=== PATIENT | female | born 1980 | race Caucasian/White ===

== ENCOUNTER → 2016-08-31 | Outpatient (CLI) | payer OTHER ==
[~2016-08-31] MED LIST: CALC1TAB94 PO; MULT-974 PO; TERI202.4P SQ
== END ==
DX: I73.00 Raynaud's syndrome without gangrene (principal)

== ENCOUNTER 2016-11-10 10:26 | Outpatient (CLI) | payer OTHER ==
[~2016-11-10] VITALS: Ht 175.3 cm; Wt 58.5 kg
[2016-11-10 10:42] VITALS: BP 125/81
[2016-11-10] MEDS ORDERED: CHOL100045 PO (10:42)
[2016-11-10] MEDS ORDERED: DENO60DI SQ (10:42)
[2016-11-10 13:33] LABS: BASOPHILS % (AUTO) 0 % (0-10); EOSINOPHILS # (AUTO) 0.1 10^3/uL (0.0-0.3); EOSINOPHILS % (AUTO) 1 % (0-10); LYMPHOCYTES # (AUTO) 2.1 X 10^3 (1.0-4.0); LYMPHOCYTES % (AUTO) 30 % (12-44); MEAN CORPUSCULAR HEMOGLOBIN 30 PG (25-34); MEAN CORPUSCULAR HGB CONC 33 G/DL (32-36); MEAN CORPUSCULAR VOLUME 89 FL (80-99); MONOCYTES # (AUTO) 0.6 X 10^3 (0.0-1.0); MONOCYTES % (AUTO) 9 % (0-12); NEUTROPHILS # (AUTO) 4.3 X 10^3 (1.8-7.8); NEUTROPHILS % (AUTO) 60 % (42-75); PLATELET COUNT 290 10^3/uL (130-400); RED BLOOD COUNT 4.26 10^6/uL (4.35-5.85); RED CELL DISTRIBUTION WIDTH 13.8 % (10.0-14.5); WHITE BLOOD COUNT 7.1 10^3/uL (4.3-11.0)
[2016-11-15] MEDS ORDERED: OXYC-202 PO (12:09)
== END 2016-11-10 10:50 | disposition home or self-care (01) ==
LOC: PREOP 10:26
PROVIDERS: ATTEND Obstetrics & Gynecology
DX: Z01.818 Encounter for other preprocedural examination (principal); R10.2 Pelvic and perineal pain; N93.8 Other specified abnormal uterine and vaginal bleeding; N85.8 Other specified noninflammatory disorders of uterus
CPT/HCPCS: 36415; 85025; 87081

== ENCOUNTER 2016-11-15 11:00 | Day surgery (SDC) | payer OTHER ==
[~2016-11-15] VITALS: Ht 175.3 cm; Wt 58.5 kg
[2016-11-15 11:00] VITALS: BP 125/85
[~2016-11-15 11:00] MED LIST changes: +CHOL100045 PO; +DENO60DI SQ
[2016-11-15] MEDS ORDERED: CATHETER FLUSH 10 ML SYR IV PRN (11:15)
[2016-11-15] MEDS ORDERED: ceFAZolin 1 GM/NS 50 ML IVPB IV ONE ×2 (11:15)
[2016-11-15] MEDS: LACTATED RINGERS 1,000 ML IV PRN ×2 (11:40→13:08)
[2016-11-15] MEDS ORDERED: BUPIVACAINE 0.25% 30 ML (SENSORCAINE) VIAL ONE (11:44)
--- NOTE | 2016-11-15 12:06 | Progress Note-Pre Operative ---
Pre-Operative Progress Note H&P Reviewed The H&P was reviewed, patient examined and no changes noted. Date Seen by Provider: Nov 15, 2016 Time Seen by Provider: 12:06 Date H&P Reviewed: Nov 15, 2016 Time H&P Reviewed: 12:06 Pre-Operative Diagnosis: chronic pelvic pain/dysfunctional uterine bleeding/ intrauterine mass MARLENE MELTON MD Nov 15, 2016 12:06 pm
[2016-11-15] MEDS ORDERED: D5 LR IV SOLUTION 1,000 ML IV SCH (12:07)
--- NOTE | 2016-11-15 12:07 | Progress Note-Post Operative ---
Post-Operative Progess Note Surgeon (s)/[employer] (s) Surgeon MARLENE MELTON MD [employer]: Clementine Silverman RN Pre-Operative Diagnosis chronic pelvic pain/dysfunctional uterine bleeding/intrauterine mass Post-Operative Diagnosis same as preop and including extensive left ovarian endometrioma/endometriosis pelvic adhesions and abnormal-appearing appendix with pathology pending Procedure & Operative Findings Date of Procedure 11/15/16 Procedure Performed/Findings hysteroscopy with directed biopsy and D&C. laparoscopy with LSO, adhesio lysis , destruction of endometriosis, laparoscopic appendectomy Anesthesia Type GETA Estimated Blood Loss Estimated blood loss (mL): between 50 and 100 mL Specimens/Packing Specimens Removed right salpingo-oophorectomy, and appendix Packing: none MARLENE MELTON MD Nov 15, 2016 12:07
[2016-11-15] MEDS ORDERED: OXYC-202 PO (12:09)
--- NOTE | 2016-11-15 12:12 | Discharge Instructions ---
Discharge Instructions Discharge Medications New, Converted or Re-Newed RX: RX on Chart Patient Instructions Patient Instructions: as directed Return to The Hospital For: aas directed Activity & Diet Discharge Diet: No Restrictions Activity as Tolerated: No Orders-Post D/C & Referrals Follow Up Appt: Call to make follow up appt. for patient in 1 week for suture removal. Activity: Rest for 24 hours, than as tolerated. Wound Care: May remove Band-Aid tomorrow. Replace as desired. Keep incisions clean and dry. Wash daily with soap and water. medications: Resume Nuva-Ring today Diet: As tolerated-Clear Liquids only if nauseated. May shower or tub bathe as desired. No driving for 24 hours, no alcoholic beverages for 24 hours, and nothing per vagina (no tampons, douching, or intercourse) for 2 weeks. Patient to return to the clinic as soon as possible for: Temperature greater than 101F, Severe Pain, Foul discharge from incision or vagina, Excessive Bleeding (more than a period). MARLENE MELTON MD Nov 15, 2016 12:12 pm
[2016-11-15] MEDS ORDERED: MIDAZOLAM 2 MG/2 ML (VERSED) VIAL ONE (12:14)
[2016-11-15] MEDS ORDERED: fentaNYL INJECTION 100 MCG/2 ML AMP IVP PRN ×2 (12:15→14:15)
[2016-11-15] MEDS ORDERED: ONDANSETRON 4 MG/2 ML (SDV) Z0FRAN IVP PRN ×2 (12:15→14:15)
[2016-11-15] MEDS ORDERED: KETOROLAC 30 MG/ML VIAL IVP ONE (12:15)
[2016-11-15] MEDS ORDERED: oxyCODONE/APAP 10/325MG (PERCOCET 10) TABLET PO PRN (12:15)
[2016-11-15] MEDS ORDERED: ESTROGENS CONJ IV 25 MG/5 ML (PREMARIN) VIAL IVP ONE (12:15)
[2016-11-15] MEDS ORDERED: ONDANSETRON 4 MG/2 ML (SDV) Z0FRAN ONE (12:25)
[2016-11-15] MEDS ORDERED: SEVOFLURANE (ULTANE) 15 ML INHAL SOLN ONE ×6 (12:25→13:24)
[2016-11-15] MEDS ORDERED: LACTATED RINGERS 1,000 ML IV ONE ×2 (12:25→13:24)
[2016-11-15] MEDS ORDERED: proPOfol 200 MG/20 ML (DIPRIVAN) VIAL IV ONE (12:25)
[2016-11-15] MEDS ORDERED: LIDOCAINE PF 2% 5 ML (XYLOCAINE) VIAL ONE (12:25)
[2016-11-15] MEDS ORDERED: ESTROGENS CONJ IV 25 MG/5 ML (PREMARIN) VIAL ONE (12:40)
[2016-11-15] MEDS ORDERED: WATER (STERILE) FOR INJECTION 10 ML ONE (12:40)
[2016-11-15] MEDS ORDERED: KETOROLAC 30 MG/ML VIAL ONE (12:40)
[2016-11-15] MEDS ORDERED: morphine INJ 10 MG/ML 1ML (SYR OR VIAL) ONE (12:40)
[2016-11-15] MEDS ORDERED: hydrALAZINE (APESOLINE) 20 MG/ML VIAL ONE (13:49)
[2016-11-15] MEDS ORDERED: MEPERIDINE (DEMEROL) INJ 50 MG/ML ONE (13:59)
[2016-11-15] MEDS: MEPERIDINE (DEMEROL) INJ 50 MG/ML IVP PRN ×2 (14:07→14:17)
[2016-11-15] MEDS: morphine INJ 10 MG/ML 1ML (SYR OR VIAL) IVP PRN ×2 (14:15→14:20)
[2016-11-15] MEDS ORDERED: fentaNYL INJECTION 100 MCG/2 ML AMP ONE (14:48)
[2016-11-15 15:20] VITALS: BP 114/71
[2016-11-15 15:55] VITALS: BP 109/68
[2016-11-15 17:20] VITALS: BP 118/65
[2016-11-15 17:55] VITALS: BP 118/65
--- NOTE | 2016-11-16 00:21 | OPERATIVE REPORT ---
DATE OF SERVICE: 11/15/2016 PREOPERATIVE DIAGNOSIS: Chronic pelvic pain, left ovarian complex cystic mass, dysfunctional uterine bleeding and intrauterine mass. POSTOPERATIVE DIAGNOSIS: Chronic pelvic pain, left ovarian complex cystic mass, dysfunctional uterine bleeding and intrauterine mass with pathology pending. OPERATIVE PROCEDURE: Hysteroscopy with directed biopsy and D and C, as well as laparoscopic left salpingo-oophorectomy, laparoscopic adhesiolysis, laparoscopic destruction of endometriosis, and laparoscopic appendectomy. OPERATIVE DESCRIPTION: With the patient in the supine position, under satisfactory general anesthesia, she was repositioned dorsal lithotomy position in [facility] and prepped and draped in the usual fashion for abdominal and vaginal surgery. The urinary bladder was drained with a straight catheter. Weighted speculum placed in the posterior fornix of the vagina and the cervix exposed and grasped anteriorly with a single toothed tenaculum. Uterus sounded to 9 cm. With the uterine sound in the cervix, then serially dilated with Chu dilators to accommodate a hysteroscope, was introduced using saline as a distending medium and the endometrial cavity was examined. There were 2 polypoid masses emanating from the left posterolateral surface of the uterine cavity. These were directly biopsied off and sent to pathology as 1 specimen. The endometrial cavity was then sharply curettaged in all 4 quadrants to good uterine cry and that tissue was sent as endometrial curettings. Both tubal ostia were seen. There was no other abnormal pathology in the uterus. With hemostasis assured at this point, a uterine manipulator was placed and the bulb filled with 4 mL of air and then the tenaculum and speculum were removed. The patient was brought into low dorsal lithotomy position for laparoscopy. A 5 mm incision was made in the patient's left upper quadrant, a 12 mm incision in the inferior margin of the umbilicus, and a 5 mm incision just superior to the symphysis pubis. All incision sites were infiltrated with 0.25% Marcaine prior to incision. A Veress needle was placed in the left upper quadrant incision, correct placement was confirmed with a water drop test. The abdomen was insufflated with 2.4 liters of carbon dioxide, the Veress needle was removed and a 5 mm Optiview laparoscopic port placed under direct vision. The patient was placed in Trendelenburg, allowing the bowel to spill partially up out of the pelvis. The abdominal wall was transilluminated and ports of 5 mm and 12 mm were placed suprapubically and infraumbilically through those incisions. The uterus was elevated. The left ovary was densely adherent to the ovarian fossa. There was obvious endometriosis implants and there was an obvious endometrioma involving the bulk of the ovary. There were adhesions of the sigmoid to the left pelvic brim obstructing access to the left tube and ovary. These adhesions were taken down with sharp and blunt dissection as well as using electrocautery with care to avoid thermal or traumatic injury to the bowel and to the adjacent structures. With that ovary freed, it could be seen that it was completely involved with the endometriosis. Decision was made to proceed with a left salpingo-oophorectomy. The pelvic peritoneum was retracted medially from the left side of the pelvis until the ureter could be identified well down away from the area of dissection, and then an endo-DEBORAH was placed across the uteroovarian pedicle and fired, a 2nd was fired across the IP ligament severing that organ from its attachment. The ovary was placed in an endobag and brought out through the umbilical incision. The pelvis was irrigated. There was some bleeding from the proximal staple line. This was touched with electrocautery to affect hemostasis. The pelvis was now examined and additional endometriosis implants in the cul-de-sac and on both uterosacral ligaments and both ovarian fossa were touched with electrocautery to destroy them, taking care to avoid thermal or traumatic injury to bowel or to those adjacent structures. Both ureters seen to peristalse and were well away from the areas of treatment. The right ovary was adherent to the ovarian fossae near its attachment to the mesovarium. This adhesion was taken free. There was some endometriosis there that was destroyed. There was some endometriosis implants on the right ovary that were destroyed with electrocautery as well. The pelvis was now irrigated, then examined for hemostasis which was complete with no further pathology in the pelvis. Attention was turned to the appendix. The appendix was located and elevated. It was injected and irregular in appearance consistent with disease, either infection or endometriosis and/or scar tissue. Decision was made to remove it. The mesoappendix was perforated close to the base of the appendix and an endo-DEBORAH was placed across the base of the appendix and fired. The mesoappendix was then clamped with the 2nd load of the endo-DEBORAH and fired, severing the appendix from its attachments. The appendix was placed into the endo bag and brought out through the umbilical port as well. That was sent to pathology for permanent section. The stump of the appendix was copiously irrigated and then treated with several drops of Betadine solution. The pelvis was examined the final time now for any abnormal pathology and for hemostasis. With no abnormal pathology remaining and hemostasis complete, the procedure was terminated. The operative instruments were removed under direction vision as were the ports. The abdomen was evacuated with insufflating gas in the process of removing the ports. The patient was brought out of Trendelenburg. The uterine manipulator was emptied and the instrument was removed from the uterus and from the vagina. Speculum was replaced in the vagina, cervix was examined for hemostasis, which was complete. Sponge and needle counts were correct on completion of the procedure. Estimated blood loss for the procedure was between 50 and 100 mL. The patient tolerated the procedure well and was uneventfully awakened from general anesthesia and transferred to the recovery room in stable condition with plans for discharge home, PAR. Job ID: [id number] DocumentID: [id number] Dictated Date: 11/15/2016 13:47:06 Informatics Developer Date: 11/15/2016 14:27:10 Dictated By: MARLENE MELTON MD
== END 2016-11-15 17:55 | disposition home or self-care (01) ==
LOC: SDC 11:00
PROVIDERS: ATTEND Obstetrics & Gynecology
DX: N83.202 Unspecified ovarian cyst, left side (principal); R10.2 Pelvic and perineal pain; N93.8 Other specified abnormal uterine and vaginal bleeding
CPT/HCPCS: 84703

== ENCOUNTER → 2018-01-14 | Outpatient (CLI) | payer OTHER ==
[~2018-01-14] MED LIST changes: +OXYC1TAB12 PO
== END ==
LOC: CARD 08:49
PROVIDERS: ATTEND Internal Medicine Cardiovascular Disease
DX: Q21.1 Atrial septal defect (principal); I49.8 Other specified cardiac arrhythmias; R07.89 Other chest pain; I08.1 Rheumatic disorders of both mitral and tricuspid valves
CPT/HCPCS: 93225; 93226; 93306; 93351

== ENCOUNTER → 2018-02-12 | Outpatient (CLI) | payer OTHER | END | disposition home or self-care (01) | LOC: PREOP 05:39 | PROVIDERS: ATTEND Podiatrist | DX: Z01.818 Encounter for other preprocedural examination (principal) ==

== ENCOUNTER 2018-02-15 08:11 | Day surgery (SDC) | payer OTHER ==
[~2018-02-15] VITALS: Ht 175.3 cm; Wt 61.0 kg
[~2018-02-15 08:11] MED LIST changes: +ALEN70TA47 PO; +CALC-903 PO; +CETI10TA20 PO; +ETON1VAG VG; +MAGN100T5 PO; +MULT1TAB69 PO
[2018-02-15] MEDS ORDERED: LACTATED RINGERS 1,000 ML IV PRN (08:16)
--- OUTSIDE RECORDS SUMMARY | 2018-02-15 08:16 | XMS REPORT | Continuity of Care Document ---
Author Author [facility] Organization [facility] Address Unknown Phone Unavailable Allergies Active Description Code Type Severity Reaction Onset Reported/Identified Relationship to Patient Clinical Status Yes vancomycin [id number] Drug Allergy Unknown N/A 10/16/2013 Yes acetaminophen [id number] Drug Allergy Mild N/A 11/20/2016 Yes oxycodone [id number] Drug Allergy Mild N/A 11/20/2016 Medications There is no data. Problems Date Dx Coded Attending Type Code Diagnosis Diagnosed By 07/02/2010 Ot 789.01 ABDOMINAL PAIN, RIGHT UPPER QUADRANT 10/16/2013 AGUSTO JANE MD Ot 540.0 AC APPEND W PERITONITIS 10/16/2013 AGUSTO AJNE MD Ot 560.9 INTESTINAL OBSTRUCT NOS 10/16/2013 AGUSTO JANE MD Ot 564.00 UNSPEC CONSTIPATION 10/16/2013 AGUSTO JANE MD Ot 789.09 ABDOMINAL PAIN, OTHER SPECIFIED SITE 06/04/2014 Ot V76.12 06/23/2014 NANCY JOHNS DO Ot 719.40 06/23/2014 NANCY JOHNS DO Ot 780.79 06/23/2014 NANCY JOHNS DO Ot 781.0 06/23/2014 NANCY JOHNS DO Ot V70.0 06/25/2014 Ot 719.45 06/25/2014 Ot 733.00 06/25/2014 Ot V82.81 06/25/2014 Ot 251.2 06/25/2014 Ot 733.00 06/25/2014 Ot 780.79 06/25/2014 Ot 787.91 06/25/2014 Ot 789.00 06/25/2014 Ot 733.00 06/25/2014 Ot 789.00 06/25/2014 Ot 789.00 06/25/2014 Ot 789.00 06/25/2014 Ot 733.01 06/25/2014 Ot 719.45 06/25/2014 ORENDER DO, NANCY S Ot 733.13 06/25/2014 Ot V76.12 06/25/2014 ORENDER DO, NANCY S Ot 719.40 06/25/2014 ORENDER DO, NANCY S Ot 780.79 06/25/2014 ORENDER DO, NANCY S Ot 781.0 06/25/2014 ORENDER DO, NANCY S Ot V70.0 06/25/2014 Ot 719.45 06/25/2014 Ot 733.00 06/25/2014 Ot V82.81 06/25/2014 Ot 251.2 06/25/2014 Ot 733.00 06/25/2014 Ot 780.79 06/25/2014 Ot 787.91 06/25/2014 Ot 789.00 06/25/2014 Ot 733.00 06/25/2014 Ot 789.00 06/25/2014 Ot 789.00 06/25/2014 Ot 789.00 06/25/2014 Ot 733.01 06/25/2014 Ot 719.45 06/25/2014 ORENDER DO, NANCY S Ot 733.13 06/25/2014 Ot V76.12 06/25/2014 ORENDER DO, NANCY S Ot 719.40 06/25/2014 ORENDER DO, NANCY S Ot 780.79 06/25/2014 ORENDER DO, NANCY S Ot 781.0 06/25/2014 ORENDER DO, NANCY S Ot V70.0 07/16/2014 [facility] Ot 719.45 07/16/2014 [facility] Ot 733.00 09/21/2014 ORENDER DO, NANCY S Ot 723.1 09/21/2014 ORENDER DO, NANCY S Ot 733.00 11/24/2014 AMIE AVINA AFTER SCHO[employer] COUNSELOR Ot 724.2 11/24/2014 AMIE AVINA AFTER SCHO[employer] COUNSELOR Ot V15.51 02/26/2015 Ot M81.0 04/02/2015 ELVIRA ARIAS MD Ot M54.12 04/02/2015 JUANA VIZCAINO, ELVIRA Cordero Ot M54.14 12/20/2015 Ot 733.00 OSTEOPOROSIS NOS 12/20/2015 Ot V82.81 SCREENING FOR OSTEOPOROSIS 12/20/2015 Ot 251.2 HYPOGLYCEMIA NOS 12/20/2015 Ot 733.00 OSTEOPOROSIS NOS 12/20/2015 Ot 780.79 OTH MALAISE FATIGUE 12/20/2015 Ot 787.91 DIARRHEA 12/20/2015 Ot 789.00 ABDOMINAL PAIN, UNSPECIFIED SITE 12/20/2015 Ot 733.00 OSTEOPOROSIS NOS 12/20/2015 Ot 789.00 ABDOMINAL PAIN, UNSPECIFIED SITE 12/20/2015 Ot 789.00 ABDOMINAL PAIN, UNSPECIFIED SITE 12/20/2015 Ot 789.00 ABDOMINAL PAIN, UNSPECIFIED SITE 12/20/2015 Ot 733.01 SENILE OSTEOPOROSIS 12/20/2015 Ot 719.45 JOINT PAIN- PELVIS 12/20/2015 ELIZABETHNDER DO, NANCY S Ot 733.13 PATHOLOGIC FRACTURE, VERTEBRAE 12/20/2015 Ot V76.12 OTH SCREEN MAMMO-MALIGN NEOPLASM OF [place]EN[place] 12/20/2015 ORENDER DO, NANCY S Ot 719.40 JOINT PAIN-UNSPEC 12/20/2015 ORENDER DO, NANCY S Ot 780.79 OTH MALAISE FATIGUE 12/20/2015 ORENDER DO, NANCY S Ot 781.0 ABN INVOLUN MOVEMENT NEC 12/20/2015 ORENDER DO, NANCY S Ot V70.0 ROUTINE MEDICAL EXAM 12/20/2015 ORENDER DO, NANCY S Ot 719.45 JOINT PAIN-PELVIS 12/20/2015 ORENDER DO, NANCY S Ot 733.00 OSTEOPOROSIS NOS 12/20/2015 ORENDER DO, NANCY S Ot 723.1 CERVICALGIA 12/20/2015 ORENDER DO, NANCY S Ot 733.00 OSTEOPOROSIS NOS 12/20/2015 AMIE AVINA AFTER SCHOOL COUNSELOR Ot 724.2 LUMBAGO 12/20/2015 AMIE AVINA AFTER SCHOOL COUNSELOR Ot V15.51 PERSONAL HISTORY OF TRAUMATIC FRACTURE 12/20/2015 Ot M81.0 AGE-RELATED OSTEOPOROSIS W/O CURRENT PAT 12/20/2015 ELVIRA ARIAS MD Ot M54.12 RADICULOPATHY, CERVICAL REGION 12/20/2015 JUANA VIZCAINO, ELVIRA Crodero Ot M54.14 RADICULOPATHY, THORACIC REGION 12/22/2015 ANDREAS MCCLELLAN NANCY S Ot M81.0 AGE-RELATED OSTEOPOROSIS W/O CURRENT PAT 12/22/2015 VICTORINA JOHNS DOLINE S Ot Z00.00 ENCNTR FOR GENERAL ADULT MEDICAL EXAM W12/26/2015 VICTORINA JOHNS DOLINE S Ot M81.0 AGE-RELATED OSTEOPOROSIS W/O CURRENT PAT 12/26/2015 ANDREAS MCCLELLAN, NANCY S Ot Z00.00 ENCNTR FOR GENERAL ADULT MEDICAL EXAM W09/01/2016 ANDREAS MCCLELLAN NANCY S Ot 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 10/03/2016 Ot 719.45 JOINT PAIN- PELVIS 10/03/2016 ANDREAS MCCLELLAN NANCY S Ot 733.13 PATHOLOGIC FRACTURE, VERTEBRAE 10/03/2016 Ot V76.12 OTH SCREEN MAMMO-MALIGN NEOPLASM OF [place] 10/03/2016 ANDREAS NANCY S Ot 719.40 JOINT PAIN-UNSPEC 10/03/2016 BALDOMEROLISSA MCCLELLAN NANCY S Ot 780.79 OTH MALAISE FATIGUE 10/03/2016 ANDREAS MCCLELLAN NANCY S Ot 781.0 ABN INVOLUN MOVEMENT NEC 10/03/2016 BALDOMEROLISSA MCCLELLAN NANCY S Ot V70.0 ROUTINE MEDICAL EXAM 10/03/2016 ANDREAS MCCLELLAN NANCY S Ot 719.45 JOINT PAIN-PELVIS 10/03/2016 ANDREAS MCCLELLAN NANCY S Ot 733.00 OSTEOPOROSIS NOS 10/03/2016 VICTORINA JOHNS DOLINE S Ot 723.1 CERVICALGIA 10/03/2016 ANDREAS MCCLELLAN NANCY S Ot 733.00 OSTEOPOROSIS NOS 10/03/2016 AMIE AVINA Ot 724.2 LUMBAGO 10/03/2016 AMIE AVINA Ot V15.51 PERSONAL HISTORY OF TRAUMATIC FRACTURE 10/03/2016 Ot M81.0 AGE-RELATED OSTEOPOROSIS W/O CURRENT PAT 10/03/2016 JUANA VIZCAINO, ELVIRA Cordero Ot M54.12 RADICULOPATHY, CERVICAL REGION 10/03/2016 JUANA VIZCAINO, ELVIRA Cordero Ot M54.14 RADICULOPATHY, THORACIC REGION 10/03/2016 NANCY JOHNS DO Ot M81.0 AGE-RELATED OSTEOPOROSIS W/O CURRENT PAT 10/03/2016 NANCY JOHNS DO Ot Z00.00 ENCNTR FOR GENERAL ADULT MEDICAL EXAM W/ 10/03/2016 NANCY JOHNS DO Ot 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 11/10/2016 MARLENE MELTON MD Ot N85.8 OTHER SPECIFIED NONINFLAMMATORY DISORDER 11/10/2016 MARLENE MELTON MD Ot N93.8 OTHER SPECIFIED ABNORMAL UTERINE AND VAG 11/10/2016 MARLENE MELTON MD Ot R10.2 PELVIC AND PERINEAL PAIN 11/10/2016 MARLENE MELTON MD Ot Z01.818 ENCOUNTER FOR OTHER PREPROCEDURAL EXAMIN 11/14/2016 MARLENE MELTON MD Ot N85.8 OTHER SPECIFIED NONINFLAMMATORY DISORDER 11/14/2016 MARLENE MELTON MD Ot N93.8 OTHER SPECIFIED ABNORMAL UTERINE AND VAG 11/14/2016 MARLENE MELTON MD Ot R10.2 PELVIC AND PERINEAL PAIN 11/14/2016 MARLENE MELTON MD Ot Z01.818 ENCOUNTER FOR OTHER PREPROCEDURAL EXAMIN 11/15/2016 MARLENE MELTON MD Ot N83.202 UNSPECIFIED OVARIAN CYST, LEFT SIDE 11/15/2016 MARLENE MELTON MD Ot N93.8 OTHER SPECIFIED ABNORMAL UTERINE AND VAG 11/15/2016 MARLENE MELTON MD, Ot R10.2 PELVIC AND PERINEAL PAIN 11/24/2016 MARLENE MELTON MD, Ot N83.202 UNSPECIFIED OVARIAN CYST, LEFT SIDE 11/24/2016 MARLENE MELTON MD Ot N93.8 OTHER SPECIFIED ABNORMAL UTERINE AND VAG 11/24/2016 MARLENE MELTON MD Ot R10.2 PELVIC AND PERINEAL PAIN 08/05/2017 ORENDER DO, NANCY S Ot 733.13 PATHOLOGIC FRACTURE, VERTEBRAE 08/05/2017 Ot V76.12 OTH SCREEN MAMMO-MALIGN NEOPLASM OF [place]EN[place] 08/05/2017 VICTORINA JOHNS DOLINE S Ot 719.40 JOINT PAIN-UNSPEC 08/05/2017 ANDREAS MCCLELLAN NANCY S Ot 780.79 OTH MALAISE FATIGUE 08/05/2017 ANDREAS MCCLELLAN NANCY S Ot 781.0 ABN INVOLUN MOVEMENT NEC 08/05/2017 ANDREAS MCCLELLAN NANCY S Ot V70.0 ROUTINE MEDICAL EXAM 08/05/2017 NANCY JOHNS DO S Ot 719.45 JOINT PAIN-PELVIS 08/05/2017 ANDREAS MCCLELLAN NANCY S Ot 733.00 OSTEOPOROSIS NOS 08/05/2017 BALDOMERO NANCY S Ot 723.1 CERVICALGIA 08/05/2017 ANDREAS MCCLELLAN NANCY S Ot 733.00 OSTEOPOROSIS NOS 08/05/2017 AMIE AVINA AFTER SCHOOL COUNSELOR Ot 724.2 LUMBAGO 08/05/2017 AMIE AVINA AFTER SCHOOL COUNSELOR Ot V15.51 PERSONAL HISTORY OF TRAUMATIC FRACTURE 08/05/2017 Ot M81.0 AGE-RELATED OSTEOPOROSIS W/O CURRENT PAT 08/05/2017 JUANA VIZCAINO, ELVIRA Cordero Ot M54.12 RADICULOPATHY, CERVICAL REGION 08/05/2017 JUANA VIZCAINO, ELVIRA Cordero Ot M54.14 RADICULOPATHY, THORACIC REGION 08/05/2017 ANDREAS MCCLELLAN NANCY Lazaro Ot M81.0 AGE-RELATED OSTEOPOROSIS W/O CURRENT PAT 08/05/2017 ANDREAS MCCLELLAN NANCY S Ot Z00.00 ENCNTR FOR GENERAL ADULT MEDICAL EXAM W/ 08/05/2017 ANDREAS MCCLELLAN NANCY S Ot 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 01/10/2018 ANDREAS MCCLELLAN NANCY S Ot 733.13 PATHOLOGIC FRACTURE, VERTEBRAE 01/10/2018 Ot V76.12 OTH SCREEN MAMMO-MALIGN NEOPLASM OF [place] 01/10/2018 ANDREAS MCCLELLAN NANCY S Ot 719.40 JOINT PAIN-UNSPEC 01/10/2018 ANDREAS MCCLELLAN NANCY S Ot 780.79 OTH MALAISE FATIGUE 01/10/2018 NANCY JOHNS DO Ot 781.0 ABN INVOLUN MOVEMENT NEC 01/10/2018 NANCY JOHNS DO Ot V70.0 ROUTINE MEDICAL EXAM 01/10/2018 NANCY JOHNS DO Ot 719.45 JOINT PAIN-PELVIS 01/10/2018 NANCY JOHNS DO Ot 733.00 OSTEOPOROSIS NOS 01/10/2018 NANCY JOHNS DO S Ot 723.1 CERVICALGIA 01/10/2018 NANCY JOHNS DO Ot 733.00 OSTEOPOROSIS NOS 01/10/2018 AMIE AVINA AFTER SCHOOL COUNSELOR Ot 724.2 LUMBAGO 01/10/2018 AMIE AVINA AFTER SCHOOL COUNSELOR Ot V15.51 PERSONAL HISTORY OF TRAUMATIC FRACTURE 01/10/2018 Ot M81.0 AGE-RELATED OSTEOPOROSIS W/O CURRENT PAT 01/10/2018 JUANA VIZCAINO, ELVIRA Cordero Ot M54.12 RADICULOPATHY, CERVICAL REGION 01/10/2018 JUANA VIZCAINO, ELVIRA Cordero Ot M54.14 RADICULOPATHY, THORACIC REGION 01/10/2018 NANCY JOHNS DO Ot M81.0 AGE-RELATED OSTEOPOROSIS W/O CURRENT PAT 01/10/2018 NANCY JOHNS DO Ot Z00.00 ENCNTR FOR GENERAL ADULT MEDICAL EXAM W/ 01/10/2018 NANCY JOHNS DO Ot 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 01/14/2018 ANRDEAS MCCLELLAN NANCY Willis Ot 733.13 PATHOLOGIC FRACTURE, VERTEBRAE 01/14/2018 Ot V76.12 OT SCREEN MAMMO-MALIGN NEOPLASM OF [place] 01/14/2018 NANCY JOHNS DO Ot 719.40 JOINT PAIN-UNSPEC 01/14/2018 NANCY JOHNS DO Ot 780.79 OTH MALAISE FATIGUE 01/14/2018 NANCY JOHNS DO Ot 781.0 ABN INVOLUN MOVEMENT NEC 01/14/2018 NANCY JOHNS DO Ot V70.0 ROUTINE MEDICAL EXAM 01/14/2018 NANCY JOHNS DO Ot 719.45 JOINT PAIN-PELVIS 01/14/2018 ANDREAS MCCLELLAN NANCY S Ot 733.00 OSTEOPOROSIS NOS 01/14/2018 ELIZABETHMANDY DO NANCY S Ot 723.1 CERVICALGIA 01/14/2018 ANDREAS MCCLELLAN NANCY S Ot 733.00 OSTEOPOROSIS NOS 01/14/2018 AMIE AVINA AFTER SCHOOL COUNSELOR Ot 724.2 LUMBAGO 01/14/2018 AMIE AVINA AFTER SCHOOL COUNSELOR Ot V15.51 PERSONAL HISTORY OF TRAUMATIC FRACTURE 01/14/2018 Ot M81.0 AGE-RELATED OSTEOPOROSIS W/O CURRENT PAT 01/14/2018 JUANA VIZCAINO, ELVIRA Cordero Ot M54.12 RADICULOPATHY, CERVICAL REGION 01/14/2018 JUANA VIZCAINO, ELVIRA Cordero Ot M54.14 RADICULOPATHY, THORACIC REGION 01/14/2018 NANCY JOHNS DO S Ot M81.0 AGE-RELATED OSTEOPOROSIS W/O CURRENT PAT 01/14/2018 NANCY JOHNS DO S Ot Z00.00 ENCNTR FOR GENERAL ADULT MEDICAL EXAM W/ 01/14/2018 NANCY JOHNS DO S Ot 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 01/15/2018 CHANO VIZCAINO, JES Cordero Ot I08.1 RHEUMATIC DISORDERS OF BOTH MITRAL AND T 01/15/2018 CHANO VIZCAINO, JES Cordero Ot I49.8 OTHER SPECIFIED CARDIAC ARRHYTHMIAS 01/15/2018 CHANO VIZCAINO, JES Cordero Ot Q21.1 ATRIAL SEPTAL DEFECT 01/15/2018 CHANO VIZCAINO, JES Cordero Ot R07.89 OTHER CHEST PAIN 02/05/2018 NANCY JOHNS DO Ot 733.13 PATHOLOGIC FRACTURE, VERTEBRAE 02/05/2018 Ot V76.12 OTH SCREEN MAMMO-MALIGN NEOPLASM OF [place]EN[place] 02/05/2018 NANCY JOHNS DO S Ot 719.40 JOINT PAIN-UNSPEC 02/05/2018 NANCY JOHNS DO S Ot 780.79 OTH MALAISE FATIGUE 02/05/2018 NANCY JOHNS DO S Ot 781.0 ABN INVOLUN MOVEMENT NEC 02/05/2018 NANCY JOHNS DO S Ot V70.0 ROUTINE MEDICAL EXAM 02/05/2018 NANCY JOHNS DO S Ot 719.45 JOINT PAIN-PELVIS 02/05/2018 NANCY JOHNS DO S Ot 733.00 OSTEOPOROSIS NOS 02/05/2018 NANCY JOHNS DO S Ot 723.1 CERVICALGIA 02/05/2018 VICTORINA JOHNS DOLINE S Ot 733.00 OSTEOPOROSIS NOS 02/05/2018 AMIE AVINA AFTER SCHOOL COUNSELOR Ot 724.2 LUMBAGO 02/05/2018 AMIE AVINA AFTER SCHOOL COUNSELOR Ot V15.51 PERSONAL HISTORY OF TRAUMATIC FRACTURE 02/05/2018 Ot M81.0 AGE-RELATED OSTEOPOROSIS W/O CURRENT PAT 02/05/2018 JUANA VIZCAINO, ELVIRA Cordero Ot M54.12 RADICULOPATHY, CERVICAL REGION 02/05/2018 ELVIRA ARIAS MD Ot M54.14 RADICULOPATHY, THORACIC REGION 02/05/2018 NANCY JOHNS DO S Ot M81.0 AGE-RELATED OSTEOPOROSIS W/O CURRENT PAT 02/05/2018 NANCY JOHNS DO S Ot Z00.00 ENCNTR FOR GENERAL ADULT MEDICAL EXAM W/ 02/05/2018 NANCY JOHNS DO S Ot 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 Results Test Result Range Complete blood count (CBC) with automated white blood cell (WBC) differential - 12/20/15 07:38 Blood leukocytes automated count (number/volume) 4.5 10*3/uL 4.3-11.0 Blood erythrocytes automated count (number/volume) 3.80 10*6/uL 4.35-5.85 Venous blood hemoglobin measurement (mass/volume) 11.0 g/dL 11.5-16.0 Blood hematocrit (volume fraction) 34 % 35-52 Automated erythrocyte mean corpuscular volume 88 [foz_us] 80-99 Automated erythrocyte mean corpuscular hemoglobin (mass per erythrocyte) 29 pg 25-34 Automated erythrocyte mean corpuscular hemoglobin concentration measurement ( mass/volume) 33 g/dL 32-36 Automated erythrocyte distribution width ratio 13.5 % 10.0-14.5 Automated blood platelet count (count/volume) 281 10*3/uL 130-400 Automated blood platelet mean volume measurement 9.7 [foz_us] 7.4-10.4 Automated blood neutrophils/100 leukocytes 46 % 42-75 Automated blood lymphocytes/100 leukocytes 39 % 12-44 Blood monocytes/100 leukocytes 12 % 0-12 Automated blood eosinophils/100 leukocytes 2 % 0-10 Automated blood basophils/100 leukocytes 1 % 0-10 Blood neutrophils automated count (number/volume) 2.1 10*3 1.8-7.8 Blood lymphocytes automated count (number/volume) 1.8 10*3 1.0-4.0 Blood monocytes automated count (number/volume) 0.6 10*3 0.0-1.0 Automated eosinophil count 0.1 10*3/uL 0.0-0.3 Automated blood basophil count (count/volume) 0.0 10*3/uL 0.0-0.1 Comprehensive metabolic panel - 12/20/15 07:38 Serum or plasma sodium measurement (moles/volume) 139 mmol/L 135-145 Serum or plasma potassium measurement (moles/volume) 3.5 mmol/L 3.6-5.0 Serum or plasma chloride measurement (moles/volume) 104 mmol/L 98-107 Carbon dioxide 24 mmol/L 21-32 Serum or plasma anion gap determination (moles/volume) 11 mmol/L 5-14 Serum or plasma urea nitrogen measurement (mass/volume) 16 mg/dL 7-18 Serum or plasma creatinine measurement (mass/volume) 0.80 mg/dL 0.60-1.30 Serum or plasma urea nitrogen/creatinine mass ratio 20 NRG Serum or plasma creatinine measurement with calculation of estimated glomerular filtration rate > NRG Serum or plasma glucose measurement (mass/volume) 90 mg/dL 70-105 Serum or plasma calcium measurement (mass/volume) 9.4 mg/dL 8.5-10.1 Serum or plasma total bilirubin measurement (mass/volume) 0.8 mg/dL 0.1-1.0 Serum or plasma alkaline phosphatase measurement (enzymatic activity/volume) 61 U/L 40-136 Serum or plasma aspartate aminotransferase measurement (enzymatic activity/ volume) 29 U/L 5-34 Serum or plasma alanine aminotransferase measurement (enzymatic activity/volume ) 25 U/L 0-55 Serum or plasma protein measurement (mass/volume) 6.4 g/dL 6.4-8.2 Serum or plasma albumin measurement (mass/volume) 4.1 g/dL 3.2-4.5 Lipid 1996 panel - 12/20/15 07:38 Serum or plasma triglyceride measurement (mass/volume) 28 mg/dL <150 Serum or plasma cholesterol measurement (mass/volume) 167 mg/dL < 200 Serum or plasma cholesterol in HDL measurement (mass/volume) 74 mg/ dL 40-60 Cholesterol in LDL [mass/volume] in serum or plasma by direct assay 74 mg/dL 1-129 Serum or plasma cholesterol in VLDL measurement (mass/volume) 6 mg/ dL 5-40 THYROID STIMULATING HORMONE - 12/20/15 07:38 THYROID STIMULATING HORMONE 2.06 u[iU]/mL 0.35-4.94 Serum or plasma thyroxine (T4) free measurement (mass/volume) - 12/20/15 07:38 Serum or plasma thyroxine (T4) free measurement (mass/volume) 0.97 ng/dL 0.70-1.48 25-hydroxyvitamin D measurement - 12/20/15 07:38 25-hydroxy vitamin D measurement 33 % 30-100 Serum or plasma iron measurement (mass/volume) - 12/20/15 07:38 Serum or plasma iron measurement (mass/volume) 34 ug/dL 50-175 Cyanocobalamin measurement - 12/20/15 07:38 Vitamin B12 661 pg/mL 200-1000 Serum or plasma rheumatoid factor measurement (units/volume) - 08/31/16 08:28 Serum or plasma rheumatoid factor measurement (units/volume) NEGATIVE NEGATIVE ANTI-NUCLEAR AB (SHIV) ANALYZER - 08/31/16 08:28 Screening antinuclear antibody (SHIV) assay by enzyme immunoassay <1: 80 <1:80 Methicillin resistant Staphylococcus aureus (MRSA) screening culture - 10:50 Methicillin resistant Staphylococcus aureus (MRSA) screening culture NEG NRG Complete blood count (CBC) with automated white blood cell (WBC) differential - 11/10/16 13:28 Blood leukocytes automated count (number/volume) 7.1 10*3/uL 4.3-11.0 Blood erythrocytes automated count (number/volume) 4.26 10*6/uL 4.35-5.85 Venous blood hemoglobin measurement (mass/volume) 12.6 g/dL 11.5-16.0 Blood hematocrit (volume fraction) 38 % 35-52 Automated erythrocyte mean corpuscular volume 89 [foz_us] 80-99 Automated erythrocyte mean corpuscular hemoglobin (mass per erythrocyte) 30 pg 25-34 Automated erythrocyte mean corpuscular hemoglobin concentration measurement ( mass/volume) 33 g/dL 32-36 Automated erythrocyte distribution width ratio 13.8 % 10.0-14.5 Automated blood platelet count (count/volume) 290 10*3/uL 130-400 Automated blood platelet mean volume measurement 10.0 [foz_us] 7.4-10.4 Automated blood neutrophils/100 leukocytes 60 % 42-75 Automated blood lymphocytes/100 leukocytes 30 % 12-44 Blood monocytes/100 leukocytes 9 % 0-12 Automated blood eosinophils/100 leukocytes 1 % 0-10 Automated blood basophils/100 leukocytes 0 % 0-10 Blood neutrophils automated count (number/volume) 4.3 10*3 1.8-7.8 Blood lymphocytes automated count (number/volume) 2.1 10*3 1.0-4.0 Blood monocytes automated count (number/volume) 0.6 10*3 0.0-1.0 Automated eosinophil count 0.1 10*3/uL 0.0-0.3 Automated blood basophil count (count/volume) 0.0 10*3/uL 0.0-0.1 Urine beta human chorionic gonadotropin (hCG) measurement - 11/15/16 11:05 Urine beta human chorionic gonadotropin (hCG) measurement NEGATIVE NEGATIVE Urine beta human chorionic gonadotropin (hCG) measurement - 02/14/18 09:48 Urine beta human chorionic gonadotropin (hCG) measurement NEGATIVE NEGATIVE Encounters ACCT No. Visit Date/Time Discharge Status Pt. Type Provider Facility Loc./Unit Complaint [id number] 02/14/2018 09:15:00 02/14/2018 09:56:00 DIS Outpatient BLANCHO DPM, KIMBERLI G [facility] PREOP LEFT BUNIONECTOMY [id number] 01/14/2018 08:49:00 01/14/2018 23:59:59 CLS Outpatient JES MADDEN MD [facility] CARD CHEST PAIN,ANTERIOR CHEST WALL PAIN [id number] 01/10/2018 13:15:00 01/10/2018 23:59:59 CLS Preadmit JES MADDEN MD [facility] CARD CHEST PAIN,ANTERIOR CHEST WALL PAIN [id number] 01/10/2018 13:12:00 01/10/2018 23:59:59 CLS Preadmit JES MADDEN MD [facility] CARD CHEST PAIN,ANTERIOR CHEST WALL PAIN [id number] 11/15/2016 11:00:00 11/15/2016 17:55:00 DIS Outpatient MARLENE MELTON MD [facility] SDC CHRONIC PELVIC PAIN [id number] 11/10/2016 10:26:00 11/10/2016 10:50:00 DIS Outpatient MARLENE MELTON MD [facility] PREOP CHRONIC PELVIC PAIN [id number] 08/31/2016 08:41:00 08/31/2016 23:59:59 CLS Outpatient NANCY JOHNS DO [facility] LAB RAYNAUDS, HAND STIFFNESS [id number] 12/20/2015 07:34:00 12/20/2015 23:59:59 CLS Outpatient NANCY JOHNS DO [facility] LAB OSTEOPOROSIS, YEARLY LABS [id number] 02/24/2015 15:15:00 02/24/2015 23:59:59 CLS Outpatient ELVIRA ARIAS MD [facility] RAD CERVICAL/THORACIC RADICULOPATHY [id number] 11/04/2014 08:24:00 11/04/2014 23:59:59 CLS Outpatient AMIE AVINA [facility] RAD LBP [id number] 09/03/2014 09:04:00 09/03/2014 23:59:59 CLS Outpatient ORENDER DO, NANCY S [facility] RAD NECK PAIN, [id number] 07/13/2014 15:02:00 07/13/2014 23:59:59 CLS Preadmit ORENDER DO, NANCY S [facility] REHAB UPPER THORACIC AND CERVICAL PAIN L HIP PAIN [id number] 06/25/2014 15:19:00 06/25/2014 23:59:59 CLS Outpatient ORENDER DO, NANCY S [facility] RAD LT HIP PAIN [id number] 06/08/2014 14:13:00 06/08/2014 23:59:59 CLS Outpatient ORENDER DO, NANCY S [facility] LAB YEARLY LAB,FATIGUE, ARTHARALGIAS,SPASM [id number] 11/27/2013 07:06:00 11/27/2013 23:59:59 CLS Outpatient ORENDER DO, NANCY S [facility] RAD LBP [id number] 10/16/2013 01:10:00 10/16/2013 03:49:00 DIS Emergency AGUSTO JANE MD [facility] ER PAINFUL CRAMPS [id number] 08/29/2012 13:18:00 08/29/2012 23:59:59 CLS Outpatient [id number] 02/15/2018 11:15:00 PEN Preadmit KIMBERLI NAVA DPM [facility] SDC BUNION LEFT FOOT [id number] 02/17/2015 10:05:00 Document Registration [id number] 06/25/2014 15:00:00 Document Registration [id number] 05/12/2014 14:40:00 Document Registration [id number] 04/25/2011 16:41:00 Document Registration [id number] 02/06/2011 07:56:00 Document Registration [id number] 08/17/2010 07:50:00 Document Registration [id number] 08/10/2010 07:17:00 Document Registration [id number] 07/19/2010 09:58:00 Document Registration [id number] 07/08/2010 08:45:00 Document Registration [id number] 07/05/2010 21:45:00 Document Registration [id number] 07/02/2010 14:39:00 Document Registration [id number] 12/30/2009 07:00:00 Document Registration 05/22/18 11/19/2017 14:42:08 11/19/2017 23:59:59 [facility] Nancy Marshall
[2018-02-15] MEDS ORDERED: ceFAZolin 2 GM IV Premixed 50 ML IV ONE (08:30)
[2018-02-15 08:34] VITALS: BP 112/84
[2018-02-15] MEDS ORDERED: FAMOTIDINE 20MG/2ML IV (PEPCID) IV ONE (08:45)
[2018-02-15] MEDS ORDERED: PROPOFOL INJECTION 50 ML IV ONE (10:14)
[2018-02-15] MEDS ORDERED: fentaNYL INJECTION 100 MCG/2 ML AMP ONE (10:14)
[2018-02-15] MEDS ORDERED: MIDAZOLAM 2 MG/2 ML (VERSED) VIAL ONE (10:14)
[2018-02-15] MEDS ORDERED: BUPIVACAINE 0.5% 30 ML (SENSORCAINE) VIAL ONE (10:26)
[2018-02-15] MEDS ORDERED: TRAM-42 PO ×2 (11:31→11:32)
[2018-02-15] MEDS ORDERED: ONDANSETRON 4 MG/2 ML (SDV) Z0FRAN IVP PRN (11:45)
[2018-02-15] MEDS ORDERED: MEPERIDINE (DEMEROL) INJ 50 MG/ML IVP ONE (11:45)
[2018-02-15] MEDS ORDERED: morphine INJ 10 MG/ML 1ML (SYR OR VIAL) IVP ONE (11:45)
[2018-02-15 12:05] VITALS: BP 123/98
[2018-02-15 12:35] VITALS: BP 130/92
[2018-02-15 12:45] VITALS: BP 130/92
--- NOTE | 2018-02-15 13:05 | Anesthesia-General Post-Op ---
MAC Patient Condition Mental Status/LOC: Same as Preop Cardiovascular: Satisfactory Nausea/Vomiting: Absent Respiratory: Satisfactory Pain: Controlled Complications: Absent Post Op Complications Complications None Follow Up Care/Instructions Patient Instructions None needed. Anesthesiology Discharge Order Discharge Order Patient is doing well, no complaints, stable vital signs, no apparent adverse anesthesia problems. No complications reported per nursing. KARLOS MILLIGAN CRNA Feb 15, 2018 13:05
--- NOTE | 2018-02-26 06:54 | OPERATIVE REPORT ---
DATE OF SERVICE: 02/15/2018 SURGEON: Dr. Nava. DRIVER MEDIC: None. PREOPERATIVE DIAGNOSIS: Bunion deformity of the left foot. POSTOPERATIVE DIAGNOSIS: Bunion deformity of the left foot. PROCEDURE PERFORMED: 1. Silver bunionectomy of the left foot. 2. Adams bunionectomy of the left foot. ANESTHESIA: General anesthesia. HEMOSTASIS: Pneumatic calf tourniquet at 250 mmHg. BLOOD LOSS: Minimal. MATERIALS USED: Arthrex nitinol staple 3-0 Vicryl, 3-0 nylon. INTRAOPERATIVE INJECTABLES: 20 mL of 0.5 % Marcaine plain. COMPLICATIONS: None. INDICATIONS FOR THE PROCEDURE: The patient is a 37-year-old female with a history of bunion deformity to her left foot. She has exhausted all conservative measures at this time and is requiring surgical intervention. She has signed consent prior to being taken back to the OR. DESCRIPTION OF PROCEDURE: Under mild sedation, the patient was brought to the OR and placed on the operating table in supine position. Following administration of general anesthesia, pneumatic calf tourniquet was placed to the left lower extremity. Left lower extremity was scrubbed, prepped and draped in aseptic manner. Proper timeout was performed. Left leg was identified as surgical site. Next, an approximately 4 cm incision was made medial and parallel to the extensor hallucis longus tendon. The incision was deepened down to subcutaneous tissues with care being taken to avoid all major neurovascular structures. All bleeders were cauterized and ligated as necessary. The incision was deepened down to the dorsal capsule and a capsular incision was made over the metatarsophalangeal joint. The medial aspect of the capsule was dissected out and the medial collateral ligaments were released giving exposure to the bony prominence of the medial first metatarsal head. A sagittal saw was then used to resect the bony prominence that was noted and passed from the surgical field. The wound was flushed with copious amounts of sterile saline. The edges were then debrided using a bone rasp. Next, attention was then directed to the proximal phalanx of the great toe. The K-wire was placed to about approximately 1 cm distal to the articular surface and a medially based wedge was then resected from the base of the proximal phalanx. The wedge was resected and passed from the surgical field. Care was taken to maintain the lateral cortex of the proximal phalanx. The osteotomy was then reduced and temporarily fixated with fracture clamps and a 13 mm staple was then placed across the osteotomy and there was good compression that was noted at osteotomy site at that time. Fluoroscopic views were taken. There was adequate reduction and good stable rigid internal fixation was noted. The wounds were then again flushed with copious amounts of sterile saline. The capsular tissue of the first metatarsophalangeal joint was repaired in a tightened manner using 3-0 Vicryl. Subcutaneous tissues were then reapproximated and closed using 3-0 Vicryl and the skin was reapproximated with wound edges well everted using 3-0 nylon. 20 mL of 0.5% Marcaine plain were injected in the foot in a Beck block type fashion. The foot was then dressed with a dry sterile dressing consisting of 4 x 4's, cast padding and Gaurav wrap. The patient tolerated the procedure and anesthesia well. She was transferred from OR to recovery with vital signs stable, neurovascular status intact to the left lower extremity. Job ID: [id number] DocumentID: [id number] Dictated Date: 02/25/2018 21:46:17 Home Supervisor Date: 02/26/2018 06:53:34 Dictated By: KIMBERLI NAVA DPM
== END 2018-02-15 12:50 | disposition home or self-care (01) ==
LOC: SDC 08:11
PROVIDERS: ATTEND Podiatrist
DX: M20.12 Hallux valgus (acquired), left foot (principal); K21.9 Gastro-esophageal reflux disease without esophagitis; R01.1 Cardiac murmur, unspecified; Z79.899 Other long term (current) drug therapy
CPT/HCPCS: 87081

== ENCOUNTER → 2018-11-12 | Outpatient (CLI) | payer OTHER ==
[~2018-11-12] MED LIST changes: -ALEN70TA47 PO; +ALEN70TA5 PO; +TRAM-42 PO
[2018-11-12 09:01] LABS: BASOPHILS % (AUTO) 1 % (0-10); EOSINOPHILS # (AUTO) 0.1 10^3/uL (0.0-0.3); EOSINOPHILS % (AUTO) 2 % (0-10); HEMATOCRIT 36 % (35-52); HEMOGLOBIN 12.1 G/DL (11.5-16.0); LYMPHOCYTES # (AUTO) 1.3 X 10^3 (1.0-4.0); LYMPHOCYTES % (AUTO) 25 % (12-44); MEAN CORPUSCULAR HEMOGLOBIN 30 PG (25-34); MEAN CORPUSCULAR HGB CONC 34 G/DL (32-36); MEAN CORPUSCULAR VOLUME 89 FL (80-99); MEAN PLATELET VOLUME 9.5 FL (7.4-10.4); MONOCYTES # (AUTO) 0.6 X 10^3 (0.0-1.0); MONOCYTES % (AUTO) 11 % (0-12); NEUTROPHILS # (AUTO) 3.2 X 10^3 (1.8-7.8); NEUTROPHILS % (AUTO) 62 % (42-75); PLATELET COUNT 250 10^3/uL (130-400); WHITE BLOOD COUNT 5.1 10^3/uL (4.3-11.0)
[2018-11-12 09:34] LABS: ALANINE AMINOTRANSFERASE 15 U/L (0-55); ALBUMIN 4.1 GM/DL (3.2-4.5); ALKALINE PHOSPHATASE 72 U/L (40-136); BILIRUBIN,TOTAL 0.7 MG/DL (0.1-1.0); BUN/CREATININE RATIO 14; CALCIUM 9.1 MG/DL (8.5-10.1); CARBON DIOXIDE 27 MMOL/L (21-32); CHLORIDE 107 MMOL/L (98-107); CHOLESTEROL 185 MG/DL (< 200); CREATININE SERUM 0.79 MG/DL (0.60-1.30); GFR ESTIMATED > 60; GLUCOSE 93 MG/DL (70-105); HDL CHOLESTEROL 96 MG/DL (40-60); SODIUM 142 MMOL/L (135-145); TRIGLYCERIDES 43 MG/DL (<150); VLDL CHOLESTEROL 9 MG/DL (5-40)
== END ==
LOC: LAB 08:30
PROVIDERS: ATTEND Family Medicine
DX: Z00.00 Encounter for general adult medical examination without abnormal findings (principal); M81.0 Age-related osteoporosis without current pathological fracture; N93.9 Abnormal uterine and vaginal bleeding, unspecified; R23.2 Flushing
CPT/HCPCS: 36415; 80053; 80061; 82306; 82670; 83001; 83002; 84443; 85025

== ENCOUNTER → 2019-02-03 | Outpatient (CLI) | payer OTHER ==
[~2019-02-03] VITALS: Ht 172.7 cm; Wt 61.4 kg
[~2019-02-03] MED LIST changes: +DENOSUMAB 60 MG/1 ML (PROLIA) SQ SCH
[2019-02-03 07:26] VITALS: BP 118/84
== END ==
LOC: SDC 07:04
PROVIDERS: ATTEND Family Medicine
DX: M81.0 Age-related osteoporosis without current pathological fracture (principal)
CPT/HCPCS: 96372

== ENCOUNTER → 2019-04-02 | Outpatient (CLI) | payer OTHER ==
[~2019-04-02] MED LIST changes: -DENOSUMAB 60 MG/1 ML (PROLIA) SQ SCH
--- NOTE | 2019-04-04 08:13 | Diagnostic Imaging Report ---
Digital mammogram. Indication: Bilateral screening This study was compared to the prior exam of 06/08/2014. At this time there are no current complaints. There are bilateral breast implants in place. The implants appear to be intact and similar to the prior exam. The fibroglandular tissue overlying the implants is heterogeneously dense. This does limit the sensitivity of this exam. Overall, there does not appear to have been any significant change. There is no primary or secondary sign of malignancy noted. Impression: 1. There is no evidence for malignancy. 2. The implants appear stable. There is no sign of an extracapsular rupture of either implant. 3. The patient should have her annual bilateral screening mammogram on schedule in March 2020. ACR BI-RADS Category 1: Negative. Result letter will be mailed to the patient. Note: At least 10% of breast cancer is not imaged by mammography. Dictated by: Dictated on workstation # [id number]
== END ==
LOC: RAD 14:34
PROVIDERS: ATTEND Obstetrics & Gynecology
DX: Z12.31 Encounter for screening mammogram for malignant neoplasm of breast (principal)
CPT/HCPCS: 77067

== ENCOUNTER → 2019-07-25 | Outpatient (CLI) | payer OTHER ==
[~2019-07-25] MED LIST changes: -CETI10TA20 PO; +CETI10TA21 PO
[2019-07-25 11:31] LABS: BASOPHILS % (AUTO) 0 % (0-10); EOSINOPHILS # (AUTO) 0.1 10^3/uL (0.0-0.3); EOSINOPHILS % (AUTO) 1 % (0-10); HEMATOCRIT 39 % (35-52); HEMOGLOBIN 12.8 G/DL (11.5-16.0); LYMPHOCYTES # (AUTO) 2.3 X 10^3 (1.0-4.0); LYMPHOCYTES % (AUTO) 35 % (12-44); MEAN CORPUSCULAR HEMOGLOBIN 30 PG (25-34); MEAN CORPUSCULAR HGB CONC 33 G/DL (32-36); MEAN CORPUSCULAR VOLUME 91 FL (80-99); MEAN PLATELET VOLUME 9.4 FL (7.4-10.4); MONOCYTES # (AUTO) 0.7 X 10^3 (0.0-1.0); MONOCYTES % (AUTO) 10 % (0-12); NEUTROPHILS # (AUTO) 3.7 X 10^3 (1.8-7.8); NEUTROPHILS % (AUTO) 54 % (42-75); PLATELET COUNT 327 10^3/uL (130-400); RED CELL DISTRIBUTION WIDTH 14.2 % (10.0-14.5); WHITE BLOOD COUNT 6.8 10^3/uL (4.3-11.0)
[2019-07-25 11:52] LABS: ALANINE AMINOTRANSFERASE 13 U/L (0-55); ALBUMIN 4.2 GM/DL (3.2-4.5); ALKALINE PHOSPHATASE 52 U/L (40-136); BILIRUBIN,TOTAL 0.6 MG/DL (0.1-1.0); BUN/CREATININE RATIO 15; CALCIUM 9.2 MG/DL (8.5-10.1); CARBON DIOXIDE 26 MMOL/L (21-32); CHLORIDE 105 MMOL/L (98-107); CREATININE SERUM 0.79 MG/DL (0.60-1.30); GFR ESTIMATED > 60; GLUCOSE 79 MG/DL (70-105); POTASSIUM 3.6 MMOL/L (3.6-5.0); SODIUM 141 MMOL/L (135-145); TOTAL PROTEIN 7.5 GM/DL (6.4-8.2)
== END ==
LOC: LAB 10:32
PROVIDERS: ATTEND Nurse Practitioner Family
DX: M18.0 Bilateral primary osteoarthritis of first carpometacarpal joints (principal); F41.9 Anxiety disorder, unspecified; R51 Headache
CPT/HCPCS: 36415; 80053; 82330; 82652; 84443; 85025

== ENCOUNTER → 2019-08-01 | Outpatient (CLI) | payer OTHER ==
[~2019-08-01] VITALS: Ht 68 cm; Wt 70.0 kg
[~2019-08-01] MED LIST changes: +DENOSUMAB 60 MG/1 ML (PROLIA) SQ NR
[2019-08-01 11:35] VITALS: BP 128/88
== END ==
LOC: SDC 11:28
PROVIDERS: ATTEND Family Medicine
DX: M81.0 Age-related osteoporosis without current pathological fracture (principal); Z87.311 Personal history of (healed) other pathological fracture
CPT/HCPCS: 96372

== ENCOUNTER → 2020-02-17 | Outpatient (CLI) | payer OTHER ==
[~2020-02-17] MED LIST changes: -ALEN70TA5 PO; +ALEN70TA69 PO; -CETI10TA21 PO; +CETI10TA49 PO; -DENOSUMAB 60 MG/1 ML (PROLIA) SQ NR; +DENOSUMAB 60 MG/1 ML (PROLIA) SQ SCH; +MULT-567 PO; -MULT1TAB69 PO
[2020-02-17 14:19] VITALS: BP 132/83
== END ==
LOC: SDC 14:07
PROVIDERS: ATTEND Nurse Practitioner Family
DX: M81.0 Age-related osteoporosis without current pathological fracture (principal)
CPT/HCPCS: 96372

== ENCOUNTER → 2020-03-31 | Outpatient (CLI) | payer OTHER ==
[~2020-03-31] MED LIST changes: -ALEN70TA69 PO; +ALEN70TA80 PO; -DENOSUMAB 60 MG/1 ML (PROLIA) SQ SCH
[2020-03-31 11:31] LABS: BASOPHILS % (AUTO) 1 % (0-10); EOSINOPHILS # (AUTO) 0.1 10^3/uL (0.0-0.3); EOSINOPHILS % (AUTO) 2 % (0-10); HEMATOCRIT 36 % (35-52); HEMOGLOBIN 11.6 g/dL (11.5-16.0); LYMPHOCYTES # (AUTO) 2.5 10^3/uL (1.0-4.0); LYMPHOCYTES % (AUTO) 54 % (12-44); MEAN CORPUSCULAR HEMOGLOBIN 29 pg (25-34); MEAN CORPUSCULAR HGB CONC 32 g/dL (32-36); MEAN CORPUSCULAR VOLUME 91 fL (80-99); MEAN PLATELET VOLUME 9.3 fL (9.0-12.2); MONOCYTES # (AUTO) 0.6 10^3/uL (0.0-1.0); MONOCYTES % (AUTO) 14 % (0-12); NEUTROPHILS # (AUTO) 1.3 10^3/uL (1.8-7.8); NEUTROPHILS % (AUTO) 29 % (42-75); PLATELET COUNT 257 10^3/uL (130-400); WHITE BLOOD COUNT 4.6 10^3/uL (4.3-11.0)
[2020-03-31 11:40] LABS: CHLORIDE 104 MMOL/L (98-107); SODIUM 141 MMOL/L (135-145)
[2020-03-31 11:41] LABS: ALBUMIN 4.2 GM/DL (3.2-4.5)
[2020-03-31 11:42] LABS: CALCIUM 9.1 MG/DL (8.5-10.1); TRIGLYCERIDES 55 MG/DL (<150); VLDL CHOLESTEROL 11 MG/DL (5-40)
[2020-03-31 11:43] LABS: GLUCOSE 100 MG/DL (70-105); TOTAL PROTEIN 7.1 GM/DL (6.4-8.2)
[2020-03-31 11:44] LABS: CARBON DIOXIDE 31 MMOL/L (21-32)
[2020-03-31 11:45] LABS: BILIRUBIN,TOTAL 0.7 MG/DL (0.1-1.0)
[2020-03-31 11:46] LABS: ALKALINE PHOSPHATASE 76 U/L (40-136); GFR ESTIMATED > 60
[2020-03-31 11:47] LABS: CHOLESTEROL 212 MG/DL (< 200)
[2020-03-31 11:48] LABS: BUN/CREATININE RATIO 18
[2020-03-31 11:49] LABS: HDL CHOLESTEROL 97 MG/DL (40-60)
[2020-03-31 11:50] LABS: ALANINE AMINOTRANSFERASE 30 U/L (0-55)
[2020-03-31 12:12] LABS: FREE T4 (FREE THYROXINE) 0.89 NG/DL (0.70-1.48)
== END ==
LOC: LAB 11:16
PROVIDERS: ATTEND Family Medicine
DX: Z00.00 Encounter for general adult medical examination without abnormal findings (principal)
CPT/HCPCS: 36415; 80053; 80061; 84439; 84443; 85025

== ENCOUNTER → 2020-04-16 | Outpatient (CLI) | payer OTHER ==
--- NOTE | 2020-04-16 12:09 | Diagnostic Imaging Report ---
INDICATION: Routine screening. Comparison is made with prior exam from 04/02/2019 and 05/12/2014. 2-D and 3-D bilateral screening mammography was performed with CAD. Scattered fibroglandular densities are identified bilaterally. The patient does have bilateral subpectoral breast implants. Implant contours are smooth. There are no findings to suggest extracapsular rupture. No mass or malignant appearing microcalcifications are seen. Axillae are unremarkable. IMPRESSION: BI-RADS Category 2 No mammographic features suspicious for malignancy are identified. ACR BI-RADS Category 2: Benign findings. Result letter will be mailed to the patient. Note: At least 10% of breast cancer is not imaged by mammography. Dictated by: Dictated on workstation # [id number]
== END ==
LOC: RAD 09:01
PROVIDERS: ATTEND Obstetrics & Gynecology
DX: Z12.31 Encounter for screening mammogram for malignant neoplasm of breast (principal)
CPT/HCPCS: 77063; 77067

== ENCOUNTER → 2021-04-19 | Outpatient (CLI) | payer OTHER ==
[2021-04-19 08:58] LABS: BASOPHILS % (AUTO) 1 % (0-10); EOSINOPHILS # (AUTO) 0.1 10^3/uL (0.0-0.3); EOSINOPHILS % (AUTO) 3 % (0-10); HEMATOCRIT 36 % (35-52); HEMOGLOBIN 11.6 g/dL (11.5-16.0); LYMPHOCYTES # (AUTO) 1.6 10^3/uL (1.0-4.0); LYMPHOCYTES % (AUTO) 42 % (12-44); MEAN CORPUSCULAR HEMOGLOBIN 29 pg (25-34); MEAN CORPUSCULAR HGB CONC 32 g/dL (32-36); MEAN CORPUSCULAR VOLUME 90 fL (80-99); MEAN PLATELET VOLUME 9.4 fL (9.0-12.2); MONOCYTES # (AUTO) 0.5 10^3/uL (0.0-1.0); MONOCYTES % (AUTO) 12 % (0-12); NEUTROPHILS # (AUTO) 1.6 10^3/uL (1.8-7.8); NEUTROPHILS % (AUTO) 42 % (42-75); PLATELET COUNT 286 10^3/uL (130-400); WHITE BLOOD COUNT 3.9 10^3/uL (4.3-11.0)
[2021-04-19 09:23] LABS: ALBUMIN 3.9 GM/DL (3.2-4.5); BILIRUBIN,TOTAL 0.6 MG/DL (0.1-1.0); CALCIUM 9.3 MG/DL (8.5-10.1); CREATININE SERUM 0.8 MG/DL (0.60-1.30); POTASSIUM 3.9 MMOL/L (3.6-5.0); TOTAL PROTEIN 7.2 GM/DL (6.4-8.2)
[2021-04-19 09:32] LABS: ERYTHROCYTE SEDIMENTATION RATE 12 MM/HR (0-20)
[2021-04-19 09:43] LABS: FREE T4 (FREE THYROXINE) 0.86 NG/DL (0.70-1.48)
--- NOTE | 2021-04-19 16:50 | Diagnostic Imaging Report ---
INDICATION: 40-year-old female, history of low bone mineral content currently on therapy. History of prior spine fracture. COMPARISON: July 08, 2010. FINDINGS: AP Spine L1-L4: [BMD (g/cm2): 0.828] [T-Score: -3.1] [Z-Score: -3.2] [BMD Previous: 0.765] [BMD % Change: 8.2] LT Hip Neck: [BMD (g/cm2): 0.947] [T-Score: -0.7] [Z-Score: -0.2] LT Hip Total: [BMD (g/cm2):0.783] [T-Score:-1.8] [Z-Score: -1.6] [BMD Previous: 0.696] [BMD % Change: 12.5] RT Hip Neck: [BMD (g/cm2):0.833] [T-Score:-1.5] [Z-Score:-1.0] RT Hip Total: [BMD (g/cm2):0.742] [T-score:-2.1] [Z-Score:-1.9] [BMD Previous:0.684] [BMD % Change:8.5] *Indicates significant change from prior examination based on 95% confidence level. World Health Organization criteria for BMD interpretation classify patients as Normal (T-score at or above -1.0), Osteopenic (T-score between -1.0 and -2.5) or Osteoporotic (T-score at or below -2.5). LIMITATIONS AND MODIFICATION: None. IMPRESSION: 1. The lowest Z score measures -3.2. This is consistent with low bone mineral density/content for chronologic age. 2. No significant change in bone mineral density since prior examination. Dictated by: Dictated on workstation # [id number]
--- NOTE | 2021-04-19 17:58 | Diagnostic Imaging Report ---
INDICATION: Routine screening. COMPARISON is made with prior mammograms from 04/16/2020 and 04/02/2019. 2-D and 3-D bilateral screening mammography was performed with CAD. Both breasts are heterogeneously dense, limiting the sensitivity of mammography. There are bilateral subpectoral breast implants. Implant contours appear smooth. No mass or malignant-appearing microcalcifications are seen. Axillae are unremarkable. IMPRESSION: BI-RADS Category 2 No mammographic features suspicious for malignancy are identified. ACR BI-RADS Category 2: Benign findings. Result letter will be mailed to the patient. Note: At least 10% of breast cancer is not imaged by mammography. Dictated by: Dictated on workstation # [id number]
== END ==
LOC: RAD 14:00
PROVIDERS: ATTEND Family Medicine
DX: Z12.31 Encounter for screening mammogram for malignant neoplasm of breast (principal); M81.0 Age-related osteoporosis without current pathological fracture
CPT/HCPCS: 36415; 77063; 77067; 77080; 80053; 80061; 82306; 84439; 84443; 85025; 85652; 86038; 86039

== ENCOUNTER → 2021-05-02 | Outpatient (CLI) | payer OTHER ==
[~2021-05-02] MED LIST changes: +DENOSUMAB 60 MG/1 ML (PROLIA) SQ SCH
[2021-05-02 13:45] VITALS: BP 128/79
== END ==
LOC: SDC 13:37
PROVIDERS: ATTEND Family Medicine
DX: M81.0 Age-related osteoporosis without current pathological fracture (principal)
CPT/HCPCS: 96372

== ENCOUNTER → 2021-05-19 | Outpatient (CLI) | payer OTHER ==
[~2021-05-19] MED LIST changes: -DENOSUMAB 60 MG/1 ML (PROLIA) SQ SCH
--- NOTE | 2021-05-19 11:19 | Diagnostic Imaging Report ---
INDICATION: R WRIST PAIN pain status post fall COMPARISON: None. FINDINGS: 3 views of the right wrist demonstrate no acute fracture or dislocation. There are no focal osseous lesions. No avascular necrosis is seen. The visualized soft tissue structures are unremarkable. The pronator fat pad is not displaced. There are no radio opaque foreign bodies. IMPRESSION: 1. No acute fracture or dislocation in the right wrist. Dictated by: Dictated on workstation # [id number]
== END ==
LOC: RAD 10:27
PROVIDERS: ATTEND Family Medicine
DX: M25.531 Pain in right wrist (principal)
CPT/HCPCS: 73110

== ENCOUNTER 2021-07-15 10:48 | Emergency (ER) | payer OTHER ==
[~2021-07-15] VITALS: Ht 175.3 cm; Wt 65.8 kg
[2021-07-15 11:26] LABS: BASOPHILS # (AUTO) 0.1 10^3/uL (0.0-0.1); BASOPHILS % (AUTO) 1 % (0-10); EOSINOPHILS # (AUTO) 0.1 10^3/uL (0.0-0.3); EOSINOPHILS % (AUTO) 1 % (0-10); HEMATOCRIT 39 % (35-52); LYMPHOCYTES # (AUTO) 2.3 10^3/uL (1.0-4.0); LYMPHOCYTES % (AUTO) 32 % (12-44); MEAN CORPUSCULAR HEMOGLOBIN 29 pg (25-34); MEAN CORPUSCULAR HGB CONC 33 g/dL (32-36); MEAN CORPUSCULAR VOLUME 88 fL (80-99); MEAN PLATELET VOLUME 9.5 fL (9.0-12.2); MONOCYTES # (AUTO) 0.7 10^3/uL (0.0-1.0); MONOCYTES % (AUTO) 9 % (0-12); NEUTROPHILS # (AUTO) 4.1 10^3/uL (1.8-7.8); NEUTROPHILS % (AUTO) 57 % (42-75); PLATELET COUNT 279 10^3/uL (130-400); WHITE BLOOD COUNT 7.2 10^3/uL (4.3-11.0)
--- NOTE | 2021-07-15 11:28 | ED Lower Extremity ---
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 Went to [place] last week and developed left calf pain. She tried to hike but due to SOA had to stop. Has ongoing calf pain and intermittent soa with intermittent chest discomfort. Was started on Eliquis yesterday, had US LLE today showing: "Findings positive for DVT involving the popliteal vein with extension into the calf veins.". Nonsmoker, no hx of dvt, does have a NuvaRing. Onset: last week Severity: moderate Pain/Injury Location: left leg Method of Injury: unknown Modifying Factors: Worse With Movement (ROBERTH LEON APRN) Allergies and Home Medications Allergies Coded Allergies: acetaminophen (Unverified Allergy, Mild, 02/15/18) EXTREME ITCHING oxycodone (Unverified Allergy, Mild, 02/15/18) EXTREME ITCHING vancomycin (Unverified Allergy, Unknown, 02/15/18) Patient Home Medication List Home Medication List Reviewed: Yes (ROBERTH LEON APRN) Alendronate Sodium (Alendronate Sodium) 70 Mg Tablet, 70 MG PO WEEK, (Reported) Entered as Reported by: BRIAN CLARK on 02/14/18928 Calcium Carbonate/Vitamin D3 (Calcium 600 + Vit D3 Caplet) 1 Each Tablet, 1 EACH PO BID, (Reported) Entered as Reported by: BRIAN CLARK on 02/14/18928 Cetirizine HCl (Zyrtec) 10 Mg Tablet, 10 MG PO DAILY, (Reported) Entered as Reported by: BRIAN CLARK on 02/14/18928 Etonogestrel/Ethinyl Estradiol (Nuvaring Vaginal Ring) 1 Each Vag.ring, 1 EACH VG monthly, (Reported) Entered as Reported by: BRIAN CLARK on 02/14/18928 Magnesium Amino Acid Chelate (Magnesium) Unknown Strength Tablet, 1 TAB PO HS, (Reported) Entered as Reported by: BRIAN CLARK on 02/14/18928 Multivitamin (Multivitamins) 1 Each Tablet, 1 EACH PO DAILY, (Reported) Entered as Reported by: BRIAN Freddy CLARK on 02/14/18928 Tramadol HCl (Ultram) 50 Mg Tablet, 50 MG PO Q6H Prescribed by: FADIA ARNOLD on 02/15/18 1132 Review of Systems Constitutional: see HPI EENTM: see HPI Respiratory: no symptoms reported Cardiovascular: no symptoms reported Genitourinary: no symptoms reported Musculoskeletal: see HPI Skin: no symptoms reported Psychiatric/Neurological: No Symptoms Reported (ROBERTH LEON APRN) Past Wxsyifm-Iuqwpb-Lrzhlw Hx Seasonal Allergies Seasonal Allergies: Yes (ROBERTH LEON APRN) Past Medical History Appendectomy, Oophorectomy Heart Murmur Reproductive Disorders: No Sexually Transmitted Disease: No Irritable Bowel Osteoporosis (ROBERTH LEON APRN) Physical Exam Vital Signs Vital Signs - First Documented 07/15/21 10:55 Temp 36.3 Pulse 73 Resp 28 B/P (MAP) 174/103 (126) Pulse Ox 100 O2 Delivery Room Air (ELISE MILLERA K DO) Vital Signs Capillary Refill : (ROBERTH LEON APRN) Height, Weight, BMI Height: 5'9.00" Weight: 134lbs. 8.0oz. [id number]; 19.9 BMI Method:Stated General Appearance: WD/WN, no apparent distress HEENT: PERRL/EOMI, normal ENT inspection Neck: non-tender, full range of motion Respiratory: no respiratory distress, no accessory muscle use Hips: bilateral hip non-tender, bilateral hip normal inspection, bilateral hip normal range of motion Legs: bilateral leg non-tender, bilateral leg normal inspection, bilateral leg pain Knees: bilateral knee non-tender, bilateral knee normal inspection Ankles: bilateral ankle non-tender, bilateral ankle normal inspection Feet: bilateral foot non-tender, bilateral foot normal inspection Neurologic/Psychiatric: alert, normal mood/affect, oriented x 3 Skin: normal color, warm/dry O2 100% room air, HR 75 (ROBERTH LEON APRN) Progress/Results/Core Measures Results/Orders Lab Results Laboratory Tests Test 07/15/21 11:05 07/15/21 11:09 Range/Units White Blood Count 7.2 4.3-11.0 10^3/uL Red Blood Count 4.43 3.80-5.11 10^6/uL Hemoglobin 13.0 11.5-16.0 g/dL Hematocrit 39 35-52 % Mean Corpuscular Volume 88 80-99 fL Mean Corpuscular Hemoglobin 29 25-34 pg Mean Corpuscular Hemoglobin Concent 33 32-36 g/dL Red Cell Distribution Width 13.3 10.0-14.5 % Platelet Count 279 130-400 10^3/uL Mean Platelet Volume 9.5 9.0-12.2 fL Immature Granulocyte % (Auto) 0 % Neutrophils (%) (Auto) 57 42-75 % Lymphocytes (%) (Auto) 32 12-44 % Monocytes (%) (Auto) 9 0-12 % Eosinophils (%) (Auto) 1 0-10 % Basophils (%) (Auto) 1 0-10 % Neutrophils # (Auto) 4.1 1.8-7.8 10^3/uL Lymphocytes # (Auto) 2.3 1.0-4.0 10^3/uL Monocytes # (Auto) 0.7 0.0-1.0 10^3/uL Eosinophils # (Auto) 0.1 0.0-0.3 10^3/uL Basophils # (Auto) 0.1 0.0-0.1 10^3/uL Immature Granulocyte # (Auto) 0.0 0.0-0.1 10^3/uL Sodium Level 141 135-145 MMOL/L Potassium Level 3.7 3.6-5.0 MMOL/L Chloride Level 102 98-107 MMOL/L Carbon Dioxide Level 26 21-32 MMOL/L Anion Gap 13 5-14 MMOL/L Blood Urea Nitrogen 14 7-18 MG/DL Creatinine 0.80 0.60-1.30 MG/DL Estimat Glomerular Filtration Rate 94 BUN/Creatinine Ratio 18 Glucose Level 91 70-105 MG/DL Calcium Level 9.4 8.5-10.1 MG/DL Troponin I < 0.028 <0.028 NG/ML (TRISHA MILLER DO) Vital Signs/I&O 07/15/21 07/15/21 10:55 12:35 Temp 36.3 Pulse 73 61 Resp 28 13 B/P (MAP) 174/103 (126) 153/100 Pulse Ox 100 99 O2 Delivery Room Air (TRISHA MILLER DO) Departure Communication (Admissions) 1149-PESI score 43--> low risk, appropriate for outpt management. D/w PCP Dr Howell, agrees and she will follow up with her next week in clinic. Speaks in full sentences, O2 still 98-100% room air and HR 75 sinus no ectopy. (ROBERTH LEON APRN) Impression Primary Impression: Pulmonary embolism, bilateral Disposition: HOME, SELF-CARE Condition: Stable Departure-Patient Inst. Decision time for Depature: 12:05 (ROBERTH LEON APRN) Referrals: RAUL HOWELL DO (PCP/Family) Primary Care Physician Patient Instructions: Pulmonary Embolism (Blood Clot in the Lungs) Add. Discharge Instructions: 1. Return to Er for any concerns 2. Follow up with your doctor next week 3. Return to ER for any increasing shortness of breath or worsening chest pain. Continue the ELiquis All discharge instructions reviewed with patient and/or family. Voiced understanding. ATTENDING PHYSICIAN NOTE: I WAS PHYSICALLY PRESENT ER PHYSICIAN, BUT I WAS NOT INVOLVED IN ANY DECISION MAKING OR ANY CARE OF THIS PATIENT. (TRISHA MILLER DO) ROBERTH LEON APRN July 15, 2021 11:28 TRISHA MILLER DO July 16, 2021 06:22
[2021-07-15] MEDS ORDERED: IOHEXOL 350 MG/ML 100 ML (OMNIPAQUE 350) VIAL IV ONE (11:30)
[2021-07-15] MEDS ORDERED: CATHETER FLUSH 10 ML SYR IV PRN (11:30)
[2021-07-15] MEDS ORDERED: NS 100 ML (IVPB) BAG IV ONE (11:30)
[2021-07-15] MEDS ORDERED: HOLD METFORMIN - RECEIVED CONTRAST 20 ML VIAL IV SCH (11:30)
[2021-07-15 11:31] LABS: POTASSIUM 3.7 MMOL/L (3.6-5.0)
[2021-07-15 11:33] LABS: CALCIUM 9.4 MG/DL (8.5-10.1)
[2021-07-15 11:37] LABS: CREATININE SERUM 0.8 MG/DL (0.60-1.30)
--- NOTE | 2021-07-15 11:53 | Diagnostic Imaging Report ---
EXAMINATION: CT angiography of the chest. TECHNIQUE: Contrast enhanced thin section helical images were obtained through the chest with intravenous contrast timed for the optimal opacification of the arterial structures per CTA protocol. Post-processing, reconstructions and interpretation of angiographic images of the vessels was performed. 3D MIP reconstructions were performed and reviewed. All CT scans use one or more of the following dose optimizing techniques: Automated exposure control, MA and/or KvP adjustment based on a patient size and exam type, or iterative reconstruction. HISTORY: Shortness breath. COMPARISON: None available. FINDINGS: There is a moderate burden of segmental and subsegmental pulmonary emboli involving all lobes. No significant dilation of the right ventricle. There is no edema or pneumonia. No pleural effusion. No pneumothorax. No suspicious nodules. There is no axillary or supraclavicular lymphadenopathy. There is no mediastinal lymphadenopathy. There has been an atrial occluder device placement. Heart size is normal. There are no coronary artery calcifications. No pericardial effusion. Aorta is normal in caliber. There are bilateral breast implants. Limited views of the upper abdomen are unremarkable. There are no suspicious osseous lesions. There is a chronic appearing mild L1 compression fracture. IMPRESSION: 1. Moderate burden of segmental and subsegmental pulmonary emboli involving all lobes without CT evidence of right heart strain. Critical findings called to Tyrone Onofre by Dr. Starks on 07/15/2021 at 11:51 a.m. Dictated by: Dictated on workstation # [id number]
[2021-07-15 12:35] VITALS: BP 153/100
== END 2021-07-15 12:35 | disposition home or self-care (01) ==
LOC: EDUNIT# 10:48 → ER 10:49
DX: I26.99 Other pulmonary embolism without acute cor pulmonale (principal); Z79.01 Long term (current) use of anticoagulants
CPT/HCPCS: 36415; 71275; 80048; 84484; 85025; 93005

== ENCOUNTER → 2021-07-15 | Outpatient (CLI) | payer OTHER ==
--- NOTE | 2021-07-15 10:23 | Diagnostic Imaging Report ---
PROCEDURE: US left lower extremity venous. TECHNIQUE: Multiple real-time grayscale images were obtained over the left lower extremity in various projections. Additional duplex Doppler and color Doppler images were also obtained. INDICATION: Left calf pain and swelling. The left common femoral and superficial femoral veins are widely patent. There is thrombus identified in the left popliteal vein. Thrombus extends into the calf veins. No fluid collection or mass is detected. IMPRESSION: Findings positive for DVT involving the popliteal vein with extension into the calf veins. Dictated by: Dictated on workstation # [id number]
== END ==
LOC: RAD 08:19
PROVIDERS: ATTEND Family Medicine
DX: I82.4Z2 Acute embolism and thrombosis of unspecified deep veins of left distal lower extremity (principal)

== ENCOUNTER → 2021-07-15 | Outpatient (CLI) | payer OTHER | LOC: RAD 07:21 | PROVIDERS: ATTEND Family Medicine | DX: Z53.9 Procedure and treatment not carried out, unspecified reason (principal) ==

== ENCOUNTER → 2021-10-13 | Outpatient (CLI) | payer OTHER ==
--- NOTE | 2021-10-13 09:21 | Diagnostic Imaging Report ---
PROCEDURE: US left lower extremity venous. TECHNIQUE: Multiple Real-time grayscale images were obtained over the left lower extremity in various projections. Additional duplex Doppler and color Doppler images were also obtained. INDICATION: DVT. This study is performed for followup. COMPARISON: Correlation is made with the prior venous Doppler from 07/15/2021. FINDINGS: The previously noted thrombus in the left lower extremity is no longer visualized. The left lower extremity deep venous system shows normal compressibility with normal response to augmentation and Valsalva. No fluid collection or mass is detected. IMPRESSION: No evidence of left lower extremity DVT. Dictated by: Dictated on workstation # [id number]
== END ==
LOC: RAD 08:00
PROVIDERS: ATTEND Family Medicine
DX: Z86.718 Personal history of other venous thrombosis and embolism (principal)

== ENCOUNTER → 2021-11-03 | Outpatient (CLI) | payer OTHER ==
[~2021-11-03] MED LIST changes: +CATHETER FLUSH 10 ML SYR IV PRN; +HOLD METFORMIN - RECEIVED CONTRAST 20 ML VIAL IV SCH; +IOHEXOL 350 MG/ML 100 ML (OMNIPAQUE 350) VIAL IV ONE; +NS 100 ML (IVPB) BAG IV ONE
[2021-11-03 08:02] LABS: CREATININE SERUM 0.8 MG/DL (0.60-1.30)
--- NOTE | 2021-11-03 08:46 | Diagnostic Imaging Report ---
PROCEDURE: CT angiography of the chest with contrast. TECHNIQUE: Multiple contiguous axial images were obtained through the chest after uneventful bolus administration of intravenous contrast. 3D reconstructed CTA MIP acquisitions were also performed. Auto Exposure Controls were utilized during the CT exam to meet ALARA standards for radiation dose reduction. INDICATION: Shortness of air. Comparison is made with prior CT angiogram of the chest performed 07/15/2021. Pulmonary arterial system is without evidence of thromboembolism. No filling defects are seen within central, lobar, or segmental branches. Previously noted emboli have resolved. No pericardial or pleural fluid is detected. No infiltrates, nodules or masses. Upper abdomen is unremarkable. IMPRESSION: No evidence of pulmonary embolism or acute aortic disease. Previously noted emboli may have resolved. No acute abnormality is detected. Dictated by: Dictated on workstation # [id number]
== END ==
LOC: RAD 07:34
PROVIDERS: ATTEND Family Medicine
DX: R06.02 Shortness of breath (principal)
CPT/HCPCS: 36415; 71275; 82565; 84520

== ENCOUNTER → 2021-12-05 | Outpatient (CLI) | payer OTHER ==
[~2021-12-05] MED LIST changes: -CATHETER FLUSH 10 ML SYR IV PRN; -HOLD METFORMIN - RECEIVED CONTRAST 20 ML VIAL IV SCH; -IOHEXOL 350 MG/ML 100 ML (OMNIPAQUE 350) VIAL IV ONE; -NS 100 ML (IVPB) BAG IV ONE
[2021-12-05 08:06] LABS: INR 0.9 (0.8-1.4); PROTHROMBIN TIME PATIENT 12.3 SEC (12.2-14.7)
== END ==
LOC: LABNPT 06:40
PROVIDERS: ATTEND Family Medicine
DX: I82.402 Acute embolism and thrombosis of unspecified deep veins of left lower extremity (principal)
CPT/HCPCS: 81240; 81241; 83090; 85300; 85303; 85306; 85307; 85610; 85705; 85730; 86146; 86147

== ENCOUNTER 2022-01-10 07:31 | Outpatient (CLI) | payer BC ==
[2022-01-10 08:00] VITALS: BP 123/85
[2022-01-10] MEDS ORDERED: DENOSUMAB 60 MG/1 ML (PROLIA) SQ SCH ×2 (08:00)
== END 2022-01-10 08:05 | disposition home or self-care (01) ==
LOC: SDC 07:31
PROVIDERS: ATTEND Family Medicine
DX: M81.0 Age-related osteoporosis without current pathological fracture (principal)
CPT/HCPCS: 96372

== ENCOUNTER → 2022-09-15 | Outpatient (CLI) | payer BC ==
[~2022-09-15] MED LIST changes: -ETON1VAG VG; +ETON1VAG14 VG
--- NOTE | 2022-09-15 12:39 | Diagnostic Imaging Report ---
Indication: Routine screening. Comparison is made with prior mammograms from 04/19/2021 and 04/16/2020. 2-D and 3-D bilateral screening mammography was performed with CAD. Bilateral subpectoral breast implants are again noted. Implant contours appear smooth. Both breasts are heterogeneously dense, limiting the sensitivity of mammography. The parenchymal pattern is stable. No mass or malignant-appearing microcalcifications are seen. Axillae are unremarkable. IMPRESSION: BI-RADS Category 2 No mammographic features suspicious for malignancy are identified. ACR BI-RADS Category 2: Benign findings. Result letter will be mailed to the patient. Note: At least 10% of breast cancer is not imaged by mammography. Dictated by: Dictated on workstation # [id number]
== END ==
LOC: RAD 08:55
PROVIDERS: ATTEND Obstetrics & Gynecology
DX: Z12.31 Encounter for screening mammogram for malignant neoplasm of breast (principal)
CPT/HCPCS: 77063; 77067